=== PATIENT | female | born 1945 | race Caucasian/White ===

== ENCOUNTER 2017-02-13 22:02 | Emergency (ER) | payer BC, OTHER ==
[~2017-02-13] VITALS: Ht 162.6 cm; Wt 88.2 kg
[~2017-02-13 22:02] MED LIST: ASPIR 8181 M1 PO; ATIVAN0.5 MG PO; BENICAR20 MG PO; BIOTIN1000 MICRO PO; CALCIUM OYSTER500 MG PO; CARDIZEM120 MG PO; FUROSEMIDE20 MG PO; IMDUR120 MG PO; KLOR-CON 1010 ME1 PO; LANSOPRAZOLE30 MG PO; LANTUS 10100 UNITS/ SC; LANTUS100 UNIT/1 SQ; LIDEX 0.05% GEL15 GM TP; LIPITOR80 MG PO; METOPROLOL SUC100 MG PO; NITROSTAT0.4 MG SL; NOVOLOG100 UNIT/1 SQ; SINGULAIR10 MG PO; SUCRALFATE1 GM PO; SYMBICORT60 INHALAT IH; TRICOR145 MG PO; Tylenol Arthritis Ex PO; XYZAL5 MG PO; ZITHROMAX Z-PA250 MG PO
[2017-02-13] MEDS ORDERED: ATIVAN1 MG PO (22:40)
[2017-02-13] MEDS ORDERED: CARTIA XT120 MG PO (22:43)
[2017-02-13] MEDS ORDERED: RAYOS5 MG PO (22:43)
[2017-02-13] MEDS ORDERED: LIPITOR80 MG PO (22:43)
[2017-02-13] MEDS ORDERED: TESSALON200 MG PO (22:44)
[2017-02-13] MEDS ORDERED: TOVIAZ4 MG PO (22:44)
[2017-02-13] MEDS ORDERED: VITAMIN D5000 UNI1 PO (22:44)
[2017-02-13] MEDS ORDERED: PANTOPRAZOLE SO40 MG PO (22:45)
[2017-02-13] MEDS ORDERED: TRAMADOL HCL50 MG PO (22:45)
[2017-02-13 22:54] LABS: HEMATOCRIT 39.8 % (36.0-46.0); MCH 28.6 PG (29.0-34.0); MCHC 31.4 G/DL (30.0-36.0); MCV 91.1 FL (83-99); MEAN PLAT.VOLUME 9.5 uM^3 (9.5-12.4); PLATELET COUNT 334 K/uL (156-360); RBC DIS.WIDTH-CV 14.6 % (11.8-14.6); RBC DIS.WIDTH-SD 48.9 % (39-53); RED BLOOD COUNT 4.37 M/uL (3.80-5.20); WHITE BLOOD COUNT 9.2 K/uL (4.1-10.2)
[2017-02-13 23:01] LABS: CHLORIDE 107 mEq/L (99-109); POTASSIUM 3.8 mEq/L (3.7-5.4); SODIUM 140 mEq/L (136-147)
[2017-02-13 23:03] LABS: GLUCOSE 372 mg/dL (70-99)
[2017-02-13 23:05] LABS: ANION GAP 10 MEQ/L (2-14)
[2017-02-13 23:07] LABS: GFR ESTIMATE (CALCULATED) 47 mL/min/
[2017-02-13 23:08] LABS: UREA NITROGEN (BUN) 11 mg/dL (9-23)
[2017-02-13 23:15] LABS: TROP-I INTERPRETATION NEGATIVE; TROPONIN-I < 0.01 ng/mL (0.0-0.30)
[2017-02-14] MEDS ORDERED: DOXYCYCLINE HY100 MG PO (00:30)
[2017-02-14 01:46] VITALS: BP 164/109
== END 2017-02-14 01:47 | disposition home or self-care (01) ==
LOC: EME 22:02
PROVIDERS: Emergency Medicine
DX: J84.10 Pulmonary fibrosis, unspecified (principal); R51 Headache; J45.909 Unspecified asthma, uncomplicated; E11.9 Type 2 diabetes mellitus without complications; E78.5 Hyperlipidemia, unspecified; I10 Essential (primary) hypertension; K21.9 Gastro-esophageal reflux disease without esophagitis; Z86.73 Personal history of transient ischemic attack (TIA), and cerebral infarction without residual deficits; Z95.1 Presence of aortocoronary bypass graft; Z98.61 Coronary angioplasty status; Z79.4 Long term (current) use of insulin; Z88.8 Allergy status to other drugs, medicaments and biological substances
CPT/HCPCS: 70450; 71020; 80048; 84484; 85027; 93005; 99281; 99285

== ENCOUNTER 2017-03-16 20:08 | Inpatient (IN) | payer BC, OTHER ==
[~2017-03-16] VITALS: Ht 162.6 cm; Wt 85.4 kg
[~2017-03-16 20:08] MED LIST changes: +ATIVAN1 MG PO; +CARTIA XT120 MG PO; +DOXYCYCLINE HY100 MG PO; +PANTOPRAZOLE SO40 MG PO; +RAYOS5 MG PO; +TESSALON200 MG PO; +TOVIAZ4 MG PO; +TRAMADOL HCL50 MG PO; +VITAMIN D5000 UNI1 PO
[2017-03-16 21:09] LABS: HEMATOCRIT 38.6 % (36.0-46.0); MCHC 32.1 G/DL (30.0-36.0); MCV 90.4 FL (83-99); PLATELET COUNT 369 K/uL (156-360); RBC DIS.WIDTH-CV 14.7 % (11.8-14.6); RBC DIS.WIDTH-SD 48.7 % (39-53); RED BLOOD COUNT 4.27 M/uL (3.80-5.20); WHITE BLOOD COUNT 6.5 K/uL (4.1-10.2)
[2017-03-16 21:21] LABS: CHLORIDE 93 mEq/L (99-109); POTASSIUM 4.5 mEq/L (3.7-5.4); SODIUM 132 mEq/L (136-147)
[2017-03-16 21:24] LABS: ANION GAP 17 MEQ/L (2-14)
[2017-03-16 21:26] LABS: GFR ESTIMATE (CALCULATED) 36 mL/min/
[2017-03-16 21:27] LABS: UREA NITROGEN (BUN) 25 mg/dL (9-23)
[2017-03-16 21:43] LABS: GLUCOSE 670 mg/dL (70-99)
[2017-03-16 22:11] LABS: BASE EXCESS 0.6 mEq/L (-3 to +3); CARBOXY HGB 1.9 % (0-5); METHEMOGLOBIN 1.2 % (0-1.5); PCO2 50 mm Hg (35-45); PO2 100 mm Hg (80-100); pH 7.34 (7.35-7.45)
[2017-03-16 22:12] LABS: COMMENTS - BLOOD GASES A+C+; DEVICE NC; O2 FLOW 2 L/MIN; SITE LR
[2017-03-16 22:13] LABS: TROP-I INTERPRETATION NEGATIVE; TROPONIN-I < 0.01 ng/mL (0.0-0.30)
[2017-03-16 22:58] LABS: ADD MIUA? YES; BILIRUBIN NEGATIVE; BLOOD NEGATIVE; COLOR STRAW ((YELLOW)); GLUCOSE (STRIP) >=500; KETONES 5; LEUKOCYTES SMALL; NITRITE NEGATIVE; PROTEIN (STRIP) NEGATIVE; SPECIFIC GRAVITY 1.029 (1.000-1.030); UROBILINOGEN 0.2 MG/DL (0.2-1.0)
[2017-03-16 23:01] LABS: BACTERIA NONE SEEN /HPF; EPITHELIAL CELLS RARE /HPF; MUCUS NONE SEEN /LPF; RED BLOOD CELLS 0-5 /HPF (0-5); UCUL ADDED? NO; WHITE BLOOD CELLS 0-5 /HPF (0-5)
[2017-03-17 01:01] LABS: POTASSIUM 4.3 mEq/L (3.7-5.4); SODIUM 137 mEq/L (136-147)
[2017-03-17 01:04] LABS: ANION GAP 10 MEQ/L (2-14)
[2017-03-17 01:07] LABS: GFR ESTIMATE (CALCULATED) 47 mL/min/
[2017-03-17 01:08] LABS: UREA NITROGEN (BUN) 24 mg/dL (9-23)
[2017-03-17 01:41] LABS: CHLORIDE 103 mEq/L (99-109); GLUCOSE 514 mg/dL (70-99)
[2017-03-17 04:35] LABS: POINT-OF-CARE METER ID UU13113702
[2017-03-17 05:21] VITALS: BP 143/86
[2017-03-17 06:05] LABS: POINT-OF-CARE METER ID UU13113725
[2017-03-17 07:24] VITALS: BP 140/81
[2017-03-17 10:53] LABS: POINT-OF-CARE METER ID UU13113774
[2017-03-17 11:08] VITALS: BP 137/69
[2017-03-17 15:48] LABS: POINT-OF-CARE METER ID UU13113774
[2017-03-17 15:57] VITALS: BP 132/67
[2017-03-17 18:50] VITALS: BP 116/67
[2017-03-17 22:39] VITALS: BP 146/78
[2017-03-18 03:35] VITALS: BP 141/77
[2017-03-18 05:55] LABS: POINT-OF-CARE METER ID UU13113725
[2017-03-18 06:03] LABS: HEMATOCRIT 36.2 % (36.0-46.0); MCH 29.3 PG (29.0-34.0); MCHC 32.3 G/DL (30.0-36.0); MCV 90.5 FL (83-99); MEAN PLAT.VOLUME 10.4 uM^3 (9.5-12.4); PLATELET COUNT 302 K/uL (156-360); RBC DIS.WIDTH-CV 14.7 % (11.8-14.6); RBC DIS.WIDTH-SD 49.2 % (39-53); WHITE BLOOD COUNT 10.9 K/uL (4.1-10.2)
[2017-03-18 06:18] LABS: ANION GAP 9 MEQ/L (2-14); CHLORIDE 103 MEQ/L (99-109); GFR ESTIMATE (CALCULATED) > 59 mL/min/; GLUCOSE 324 mg/dL (70-99); POTASSIUM 4.3 MEQ/L (3.7-5.4); SAMPLE HEMOLYSIS CHECK 0; SAMPLE ICTERIC CHECK 0; SAMPLE LIPEMIA CHECK 0; SODIUM 140 MEQ/L (136-147); UREA NITROGEN (BUN) 21 mg/dL (9-23)
[2017-03-18 07:39] LABS: Estimated Average Glucose 217 mg/dL (70-123); HEMOGLOBIN A1c (GLYCOHEMOGLOB) 9.2 % HGB (Below 5.7)
[2017-03-18 08:02] VITALS: BP 157/96
[2017-03-18 11:44] LABS: POINT-OF-CARE METER ID UU13113725
[2017-03-18 12:16] VITALS: BP 147/73
[2017-03-18 14:21] LABS: POINT-OF-CARE METER ID UU13113725
[2017-03-18 14:33] LABS: POINT-OF-CARE METER ID UU13113778
[2017-03-18] MEDS ORDERED: NAC600 MG PO (15:18)
[2017-03-18 15:20] VITALS: BP 153/88
[2017-03-18] MEDS ORDERED: DOXYCYCLINE HY100 MG PO (15:37)
[2017-03-18 16:22] LABS: POINT-OF-CARE METER ID UU13113725
[2017-03-18 19:37] VITALS: BP 147/76
[2017-03-18 20:56] LABS: POINT-OF-CARE METER ID UU13113725
[2017-03-18 23:41] VITALS: BP 134/87
[2017-03-19 03:41] VITALS: BP 142/90
[2017-03-19 06:04] LABS: POINT-OF-CARE METER ID UU13113725
[2017-03-19 07:24] VITALS: BP 142/81
[2017-03-19 11:30] VITALS: BP 113/63
[2017-03-19 11:54] LABS: POINT-OF-CARE METER ID UU13113725
[2017-03-19 12:12] LABS: POINT-OF-CARE METER ID UU13113725
[2017-03-19] MEDS ORDERED: BENZONATATE100 MG PO (15:23)
[2017-03-19] MEDS ORDERED: LORAZEPAM1 MG PO (15:24)
[2017-03-19 16:06] VITALS: BP 104/66
[2017-03-19 16:11] LABS: POINT-OF-CARE METER ID UU13113725
[2017-03-19 21:16] LABS: POINT-OF-CARE METER ID UU13113725
[2017-03-19 23:47] VITALS: BP 141/79
[2017-03-20 07:01] LABS: POINT-OF-CARE METER ID UU13113725
[2017-03-20 07:36] LABS: GLUCOSE 107 mg/dL (70-99)
[2017-03-20 07:59] VITALS: BP 137/78
[2017-03-20 11:53] LABS: POINT-OF-CARE METER ID UU13113725
[2017-03-20 15:13] VITALS: BP 117/75
[2017-03-20 16:15] LABS: POINT-OF-CARE METER ID UU13113725
[2017-03-20 21:16] LABS: POINT-OF-CARE METER ID UU13113774
[2017-03-20 23:31] VITALS: BP 135/79
[2017-03-21 06:04] LABS: POINT-OF-CARE METER ID UU13113774
[2017-03-21 06:28] LABS: ANION GAP 9 MEQ/L (2-14); CHLORIDE 102 MEQ/L (99-109); GFR ESTIMATE (CALCULATED) > 59 mL/min/; GLUCOSE 116 mg/dL (70-99); POTASSIUM 3.8 MEQ/L (3.7-5.4); SAMPLE HEMOLYSIS CHECK 0; SAMPLE ICTERIC CHECK 0; SAMPLE LIPEMIA CHECK 0; SODIUM 142 MEQ/L (136-147); UREA NITROGEN (BUN) 27 mg/dL (9-23)
[2017-03-21 06:50] VITALS: BP 144/80
[2017-03-21 11:52] LABS: POINT-OF-CARE METER ID UU13113725
[2017-03-21 16:34] VITALS: BP 134/69
[2017-03-21 16:35] LABS: POINT-OF-CARE METER ID UU13113774
[2017-03-21 21:09] LABS: POINT-OF-CARE METER ID UU13113725
[2017-03-21 21:25] LABS: POINT-OF-CARE METER ID UU13113725
[2017-03-21 23:46] VITALS: BP 148/83
[2017-03-22 06:01] LABS: POINT-OF-CARE METER ID UU13113725
[2017-03-22 06:46] VITALS: BP 153/95
[2017-03-22 11:55] LABS: POINT-OF-CARE METER ID UU13113725
[2017-03-22] MEDS ORDERED: PREDNISONE10 MG PO (15:02)
[2017-03-22 15:15] VITALS: BP 116/72
[2017-03-22 15:58] LABS: POINT-OF-CARE METER ID UU13113725
== END 2017-03-22 18:09 | disposition home health service (06) | DRG 637 ==
LOC: EME 20:08 → 5EAST 03-17 03:55 → EDOF 03-17 03:55 → ENRESERV 03-17 03:56 → 5EAST 03-17 05:14 → ENPENDDIS 03-22 → 5EAST 03-22 18:09
PROVIDERS: Emergency Medicine; Family Medicine; Hospitalist; Internal Medicine
DX: E11.65 Type 2 diabetes mellitus with hyperglycemia (principal); G93.41 Metabolic encephalopathy; E87.1 Hypo-osmolality and hyponatremia; N17.9 Acute kidney failure, unspecified; J96.11 Chronic respiratory failure with hypoxia; F05 Delirium due to known physiological condition; E86.0 Dehydration; E11.649 Type 2 diabetes mellitus with hypoglycemia without coma; K21.9 Gastro-esophageal reflux disease without esophagitis; J84.10 Pulmonary fibrosis, unspecified; J45.909 Unspecified asthma, uncomplicated; I25.10 Atherosclerotic heart disease of native coronary artery without angina pectoris; R26.81 Unsteadiness on feet; R19.7 Diarrhea, unspecified; E78.5 Hyperlipidemia, unspecified; E11.40 Type 2 diabetes mellitus with diabetic neuropathy, unspecified; I10 Essential (primary) hypertension; F03.90 Unspecified dementia, unspecified severity, without behavioral disturbance, psychotic disturbance, mood disturbance, and anxiety; F22 Delusional disorders; E66.9 Obesity, unspecified; Z91.041 Radiographic dye allergy status; Z88.5 Allergy status to narcotic agent; Z99.81 Dependence on supplemental oxygen; Z95.5 Presence of coronary angioplasty implant and graft; Z95.1 Presence of aortocoronary bypass graft; Z86.73 Personal history of transient ischemic attack (TIA), and cerebral infarction without residual deficits; Z79.4 Long term (current) use of insulin; Z79.82 Long term (current) use of aspirin; Z91.013 Allergy to seafood; Z68.32 Body mass index [BMI] 32.0-32.9, adult; Z80.1 Family history of malignant neoplasm of trachea, bronchus and lung; Z83.3 Family history of diabetes mellitus; Z81.8 Family history of other mental and behavioral disorders
CPT/HCPCS: 36600; 70450; 71010; 71020; 80048; 81003; 82803; 82948; 83036; 83880; 84484; 84999; 85027; 92610 GN; 93005; 94640; 94640 76; 94799; 97530 GP; 99202; 99281; 99285; J1644; J1815; J2930; J7030; J7512

== ENCOUNTER 2017-11-22 12:14 | Emergency (ER) | payer BC, OTHER ==
[~2017-11-22] VITALS: Ht 160 cm; Wt 85.7 kg
[~2017-11-22 12:14] MED LIST changes: +BENZONATATE100 MG PO; +LORAZEPAM1 MG PO; +NAC600 MG PO; +PREDNISONE10 MG PO
[2017-11-22 14:08] LABS: HEMATOCRIT 34.8 % (36.0-46.0); HEMOGLOBIN 11.7 G/DL (11.9-15.5); MCH 29.5 PG (29.0-34.0); MCHC 33.6 G/DL (30.0-36.0); MCV 87.9 FL (83-99); PLATELET COUNT 408 K/uL (156-360); RBC DIS.WIDTH-CV 15.5 % (11.8-14.6); RBC DIS.WIDTH-SD 50.2 % (39-53); RED BLOOD COUNT 3.96 M/uL (3.80-5.20); WHITE BLOOD COUNT 18.9 K/uL (4.1-10.2)
[2017-11-22 14:31] LABS: TROP-I INTERPRETATION NEGATIVE; TROPONIN-I < 0.01 ng/mL (0.0-0.30)
[2017-11-22 15:54] LABS: ALBUMIN 3.3 g/dL (3.2-4.8); CHLORIDE 101 mEq/L (99-109); POTASSIUM 4.9 mEq/L (3.7-5.4); SODIUM 137 mEq/L (136-147)
[2017-11-22 15:57] LABS: GLUCOSE 123 mg/dL (70-99); TOTAL PROTEIN 6.2 g/dL (6.4-8.3)
[2017-11-22 16:00] LABS: ALKALINE PHOSPHATASE 107 IU/L (3-129); CREATININE 1.1 mg/dL (0.6-1.3); GFR ESTIMATE (CALCULATED) 52 mL/min/
[2017-11-22 16:01] LABS: UREA NITROGEN (BUN) 25 mg/dL (9-23)
[2017-11-22 16:02] LABS: AST (GOT) 182 IU/L (2-34)
[2017-11-22 16:03] LABS: ALT (GPT) 88 IU/L (3-49)
[2017-11-22] MEDS ORDERED: ZOFRAN4 MG PO (16:51)
[2017-11-22 17:14] VITALS: BP 112/61
== END 2017-11-22 17:26 | disposition home or self-care (01) ==
LOC: EME 12:14
PROVIDERS: Nurse Practitioner Family
DX: R10.13 Epigastric pain (principal); R19.7 Diarrhea, unspecified; D72.829 Elevated white blood cell count, unspecified; J84.10 Pulmonary fibrosis, unspecified; Z99.81 Dependence on supplemental oxygen; K21.9 Gastro-esophageal reflux disease without esophagitis; E11.9 Type 2 diabetes mellitus without complications; Z79.4 Long term (current) use of insulin; E78.5 Hyperlipidemia, unspecified; I10 Essential (primary) hypertension; J45.909 Unspecified asthma, uncomplicated; Z86.73 Personal history of transient ischemic attack (TIA), and cerebral infarction without residual deficits; Z95.5 Presence of coronary angioplasty implant and graft; Z90.49 Acquired absence of other specified parts of digestive tract; Z88.5 Allergy status to narcotic agent
CPT/HCPCS: 71046; 74176; 80053; 83605; 83690; 84484; 85027; 87040; 93005; 99281; 99285; J2765; J7030